=== PATIENT | female | born 1980 | race Two or more races ===

== ENCOUNTER → 2021-10-02 | Emergency (ER) | payer OTHER ==
[~2021-10-02] VITALS: Ht 167.6 cm; Wt 77.0 kg
[2021-10-02 17:19] VITALS: BP 132/70
== END | disposition left against medical advice (07) ==
LOC: EDBD 17:03 → ER 17:07
DX: R55 Syncope and collapse (principal); Z53.21 Procedure and treatment not carried out due to patient leaving prior to being seen by health care provider
CPT/HCPCS: 36415; 84484; 84702